=== PATIENT | female | born 1990 | race Caucasian/White ===

== ENCOUNTER 2018-11-02 02:20 | Emergency (ER) | payer SELFPAY ==
[~2018-11-02] VITALS: Ht 177.8 cm; Wt 59.0 kg
[2018-11-02 02:30] VITALS: BP 115/67
--- NOTE | 2018-11-02 02:53 | Emergency Room Report ---
History of Present Illness General Chief Complaint: Skin Rash/Abscess Source: Patient Present Illness HPI Is a 28-year-old female with no past medical history. She presents with chief complaint of a skin infection. She has some dryness and irritation to her chin. His been ongoing for a year but seemed to be worsening the last few days. She tried numerous different [id number] medication without any relief. Now she felt like it is spreading to other area of her body. No fever chills but no nausea no vomiting. Allergies: Coded Allergies: No Known Allergies (Unverified , 11/02/18) Patient History Past Medical History: see triage record, old chart reviewed Past Surgical History: none Pertinent Family History: none Social History: Denies: smoking Last Menstrual Period: 10/19/2018 Now: No : 0 Para: 0 Immunizations: other Reviewed Nursing Documentation: PMH: Agreed; PSxH: Agreed Nursing Documentation-PM Past Medical History: No Stated History Review of Systems Eye: Denies: eye pain, blurred vision ENT: Denies: ear pain, nose congestion, throat swelling Respiratory: Denies: cough, shortness of breath Cardiovascular: Denies: chest pain, palpitations Gastrointestinal: Denies: abdominal pain, diarrhea, nausea, vomiting Musculoskeletal: Denies: back pain, joint pain Skin: Reports: rash, lesions Neurological: Denies: headache, numbness Endocrine: Denies: increased thirst, increased urine Hematologic/Lymphatic: Denies: easy bruising All Other Systems: negative except mentioned in HPI Physical Exam Vital Signs Date Time Temp Pulse Resp B/P (MAP) Pulse Ox O2 Delivery O2 Flow Rate FiO2 11/02/18 02:24 97.3 122 20 116/66 100 Room Air vitals normal Sp02 EP Interpretation: reviewed, normal General Appearance: well appearing, no apparent distress, alert Head: normocephalic, atraumatic Eyes: bilateral eye PERRL, bilateral eye EOMI ENT: hearing grossly normal, normal pharynx Neck: full range of motion, supple, no meningismus Respiratory: chest non-tender, lungs clear, normal breath sounds Cardiovascular #1: regular rate, rhythm, no murmur Gastrointestinal: normal bowel sounds, non tender, no mass, no organomegaly, no bruit, non-distended Musculoskeletal: back normal, gait/station normal, normal range of motion Psychiatric: mood/affect normal Skin: warm/dry, other - Her chin show cracking and dryness. No evidence of abscess. Medical Decision Making Diagnostic Impression: Primary Impression: Rash and other nonspecific skin eruption ER Course Patient with skin irritation. This may be fungal infection. This also may be an autoimmune disorder. Will need follow-up with product picker. No evidence of any abscess or necrotizing fasciitis. We'll discharge home. Since she tried different topical antifungal, hydrocortisone and antibiotic ointment, we' ll put her on fluconazole. Last Vital Signs Date Time Temp Pulse Resp B/P (MAP) Pulse Ox O2 Delivery O2 Flow Rate FiO2 11/02/18 02:24 97.3 122 20 116/66 100 Room Air Status: unchanged Disposition: HOME, SELF-CARE Condition: Stable Scripts No Active Prescriptions or Reported Meds Referrals: NOT CHOSEN IPA/MD,REFERRING (PCP) Additional Instructions: Keep area motion. Follow-up your doctor in 7 days. You may need a referral to see a product picker. Return if worse. Yogi Dennis MD Nov 02, 2018 02:53
[2018-11-02] MEDS ORDERED: FLUCONAZOLE100 MG ORAL (02:55)
[2018-11-02 03:00] VITALS: BP 119/64
--- NOTE | 2018-11-02 03:30 | NUR ---
ED Nurse Note: Pt has seen by Dr. Dennis. Orders carried out. Pt is ready for discharge. D/c instruction and prescription given, Pt verbalized understanding. ID band removed. Pt d/c from ED with steady gait.
--- NOTE | 2018-11-02 03:35 | NUR ---
ED Nurse Note: Pt arrived ED from home, c/o Pt is having general body skin rashes on her face and body. with some ithchins. Pt is A/o x4. Vital signs stable at this time. Waiting for orders.
== END 2018-11-02 03:30 | disposition home or self-care (01) ==
LOC: EMR 02:41
DX: R21 Rash and other nonspecific skin eruption (principal); F17.200 Nicotine dependence, unspecified, uncomplicated
CPT/HCPCS: 99282